=== PATIENT | male | born 2000 | race Caucasian/White ===

== ENCOUNTER 2018-02-02 11:49 | Emergency (ER) | payer OTHER ==
[2018-02-02 12:15] VITALS: BP 124/60
[2018-02-02 12:55] LABS: BASOPHILS % 0.5 (0.0-1.5); EOSINOPHILS % 1.7 % (0.0-6.8); MEAN CORPUSCULAR HEMOGLOBIN 34.1 pg (28.0-34.0); MEAN CORPUSCULAR VOLUME 97.5 fl (80.0-100.0); MONOCYTES % 7.5 % (0.0-11.0); NEUTROPHILS # 3.2 # k/uL (1.4-7.7)
[2018-02-02 13:10] LABS: eGFR (African) > 60; eGFR (Non-African) > 60
--- NOTE | 2018-02-02 13:23 | ED Physician Documentation ---
General Adult - HISTORIAN Historian: patient - HPI Stated Complaint: anal bleeding Chief Complaint: General Adult Additional Information: 3-4 days of rectal blood with painful, hard, straining bowel movements. Spotting on TP. Last normal bowel movement 5 days ago. Says he has a fissure - mom told him so. No nausea or vomiting. Had some abdominal discomfort mid right abdomen yesterday but none now. In good health in general. 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 Takes pre-exposure HIV prophylaxis. No other modifying factors or associated signs. - ROS CONST: no problems - PAST HX Past History: other (above) Other History: none Allergies/Adverse Reactions: Allergies Allergy/AdvReac Type Severity Reaction Status Date / Time No Known Allergies Allergy Verified 02/02/18 12:05 - SOCIAL HX Smoking History: non-smoker Alcohol Use: occasionally Drug Use: none - FAMILY HX Family History: No - VITAL SIGNS Vital Signs: Vital Signs Temp Pulse Resp BP Pulse Ox 98.8 F 57 L 16 124/60 98 02/02/18 12:08 02/02/18 12:08 02/02/18 12:08 02/02/18 12:08 02/02/18 12:08 - REVIEWED ASSESSMENTS Nursing Assessment Reviewed: Yes Vitals Reviewed: Yes Progress - Progress Progress: Report Submission Date: Feb 02, 2018 1:18:10 PM CDT Patient Study Name: SUKI LOPEZ Date: Feb 02, 2018 12:54:03 PM CDT Modality Type: DX Gender: M Description: ABDOMEN : 89 Institution: [facility] Physician: AGUSTIN OKEEFE - Obstructive series with chest x-ray Clinical history: Rectal bleeding for 4 days. Findings: Examination of the chest in single upright view demonstrates the lungs to be clear. The cardiovascular and mediastinal silhouettes are within n ormal limits. Examination of the abdomen in supine and upright views demonstrates gas and stool in the colon. There is no obstruction or free air. Bony structures are intact. Properitoneal fat lines are preserved and the psoas margins are well defined. Impression: 1. Negative study. Electronically signed on Feb 02, 2018 1:18:10 PM CDT by: Ricki Adan Labs, x-rays, exam, reassuring. ED Results Lab/Radiology - Lab Results Lab Results: Lab Results 02/02/18 02/02/18 Unknown Unknown WBC 5.80 K/ul K/ul (4.00-12.00) RBC 4.40 M/ul M/ul (3.90-5.20) Hgb 15.0 g/dL g/dL (12.0-18.0) Hct 42.9 % % (37.0-53.0) MCV 97.5 fl fl (80.0-100.0) MCH 34.1 pg H pg (28.0-34.0) MCHC 35.0 g/dL g/dL (30.0-36.0) RDW 12.9 % % (11.3-14.3) Plt Count 199 K/mm3 K/mm3 (130-400) Neut % (Auto) 55.8 % % (39.0-79.0) Lymph % (Auto) 30.5 % % (16.0-50.0) [place] % (Auto) 7.5 % % (0.0-11.0) Eos % (Auto) 1.7 % % (0.0-6.8) Baso % (Auto) 0.5 (0.0-1.5) Neut # (Auto) 3.2 # k/uL # k/uL (1.4-7.7) Lymph # (Auto) 1.8 # k/uL # k/uL (0.6-4.0) [place] # (Auto) 0.4 # k/uL # k/uL (0.0-0.9) Eos # (Auto) 0.1 # k/uL # k/uL (0.0-0.6) Baso # (Auto) 0.0 # k/uL # k/uL (0.0-0.5) Reactive Lymphs % 4.0 % % (0.0-5.0) Reactive Lymphs # 0.2 # k/uL # k/uL (0.0-0.8) Sodium 141 mmol/L mmol/L (136-145) Potassium 4.3 mmol/L mmol/L (3.5-5.1) Chloride 100 mmol/L mmol/L (98-107) Carbon Dioxide 33 mmol/L H mmol/L (22-30) BUN 16 mg/dL mg/dL (9-20) Creatinine 0.90 mg/dL mg/dL (0.66-1.25) Estimated Creat Clear 127 Est GFR ( Amer) > 60 (60 - ) Est GFR (Non-Af Amer) > 60 (60 - ) Glucose 61 mg/dL L mg/dL (74-106) Calcium 10.0 mg/dL mg/dL (8.4-10.2) Total Bilirubin 0.3 mg/dL mg/dL (0.2-1.3) AST 27 U/L U/L (15-46) ALT 38 U/L U/L (13-69) Alkaline Phosphatase 74 U/L U/L (38-126) Total Protein 7.5 g/dL g/dL (6.3-8.2) Albumin 4.2 g/dL g/dL (3.5-5.0) - Orders Orders: ED Orders Category Date Time Status ABDOMEN WITH PA CHEST [ABD SERIES PA CHEST] [RAD] Stat Exams 02/02/18 Ordered CBC/PLATELET/DIFF Routine Lab 02/02/18 Completed CMP Routine Lab 02/02/18 Completed URINALYSIS Routine Lab 02/02/18 Received General Adult Physical Exam - PHYSICAL EXAM GENERAL APPEARANCE: no distress EENT: eye inspection normal, ENT inspection normal, pharynx normal NECK: normal inspection, supple RESPIRATORY: no resp distress, breath sounds normal CVS: reg rate & rhythm, heart sounds normal ABDOMEN: soft, normal bowel sounds, no distension, non-tender RECTAL: normal exam (except small amount pink mucus, Heme positive guaiac) BACK: normal inspection SKIN: warm/dry, normal color NEURO: CN's nml as tested, motor nml, sensation nml, cognition normal Discharge Clincal Impression: Constipation Qualifiers: Constipation type: unspecified constipation type Qualified Code(s): K59.00 - Constipation, unspecified Referrals: Zev Alonso MD [Primary Care Provider] - 2 Days Additional Instructions: Try taking over the counter fiber tablets or capsules to normalize your bowel movements. Begin with a small dos and gradually increase it until you get the desired effect. Condition: Good Disposition: 01 HOME, SELF-CARE Decision to Admit: NO Decision Time: 13:40
--- NOTE | 2018-02-02 15:58 | Diagnostic Imaging Report ---
AGUSTIN OKEEFE [facility] [id number] [facility] [address] [place] [id number]. [id number] Report Submission Date: Feb 02, 2018 1:18:10 PM CDT Patient Study Name: SUKI LOPEZ Date: Feb 02, 2018 12:54:03 PM CDT Modality Type: DX Gender: M Description: ABDOMEN : 89 Institution: [facility] Physician: AGUSTIN OKEEFE Obstructive series with chest x-ray Clinical history: Rectal bleeding for 4 days. Findings: Examination of the chest in single upright view demonstrates the lungs to be clear. The cardiovascular and mediastinal silhouettes are within normal limits. Examination of the abdomen in supine and upright views demonstrates gas and stool in the colon. There is no obstruction or free air. Bony structures are intact. Properitoneal fat lines are preserved and the psoas margins are well defined. Impression: 1. Negative study. Electronically signed on Feb 02, 2018 1:18:10 PM CDT by: Ricki DEAN
[2018-02-03 06:23] LABS: APPEARANCE,URINE CLOUDY (CLEAR); COLOR,URINE YELLOW (YELLOW); OCCULT BLOOD,URINE NEGATIVE (NEGATIVE); UROBILINOGEN URINE 0.2 Eu (0.2-1.0)
== END 2018-02-02 14:00 | disposition home or self-care (01) ==
LOC: ED 11:49
DX: K59.00 Constipation, unspecified (principal)
CPT/HCPCS: 74022; 80053; 81002; 82270; 85025